=== PATIENT | female | born 1940 | race Caucasian/White ===

== ENCOUNTER 2017-05-28 06:44 | Day surgery (SDC) | payer MEDICARE ==
[~2017-05-28] VITALS: Ht 160 cm; Wt 74.3 kg
[~2017-05-28 06:44] MED LIST: AMLO5TAB2 PO; CARV12.52 PO; DENO60P SQ; DIPH1TAB36 PO; FLUT1SPR20; GABA300C5 PO; GEMF600T PO; HYDR-3533 PO; HYDR25TA5 PO; LISI-515 PO; LOTR15T TOPICAL; PANT40TA3 PO; POTA-163 PO; PRAV40TA2 PO
[2017-05-28] MEDS ORDERED: IOHEXOL 350 MG/ML 50 ML BTL (for Cath Lab) OTHER ONE (06:45)
[2017-05-28] MEDS ORDERED: SODIUM CHLOR 0.9% 1000 ML INJ 1,000 ML IV SCH ×2 (07:02→10:28)
[2017-05-28] MEDS ORDERED: diphenhydrAMINE HCL 50 MG/ML VIAL IV PUSH SCH (07:15)
[2017-05-28] MEDS ORDERED: MIDAZOLAM HCL 2 MG/2 ML VIAL IV PUSH SCH (07:15)
[2017-05-28 07:34] VITALS: BP 131/63; PULSE 52; RESP 18; TEMP 97.8; O2SAT 96
[2017-05-28] MEDS ORDERED: EZET10 PO (07:41)
[2017-05-28] MEDS ORDERED: ATOR20TA15 PO (07:41)
[2017-05-28] MEDS ORDERED: CALC1TAB87 PO (07:41)
[2017-05-28] MEDS ORDERED: NITR0.4S SL (07:41)
[2017-05-28] MEDS ORDERED: HEPARIN-NS/PF INJ 1,000 ML ONE (08:40)
[2017-05-28] MEDS ORDERED: MIDAZOLAM HCL 2 MG/2 ML VIAL ONE (08:41)
[2017-05-28] MEDS ORDERED: LIDOCAINE HCL 1% PF 30 ML VIAL ONE (09:17)
--- NOTE | 2017-05-28 10:27 | CATHPROC ---
[employer] HIS Report Study Information Study Number Admission Scheduled Start Study Start [id number] May 28 2017 6:44AM 05/28/2017 May 28 2017 8:30AM [place] Service Cardiac Catheterization Admit Source Facility Department Other [facility] - Home Care Attendant Physician and Clinical Staff Initial MD Sevilla, Jorge [employer] Science Teacher Emelia Scott,ECHO Other cathlab, cathlab Recorder Yamilka Chan,SHELL MACHINE OPERATOR TECH2 Scrub Jorge Sorenson,RT(R) Procedures Performed Procedure Location (Site) Vessel Name Coronary Angiograms LCA Left Coronary Coronary Angiograms RCA Right Coronary Equipment Time Immigration Law Specialist Description Size Mfg Part Number Used/Scraped [id number] 08:40 WU PRIDE SWAN TAINA CATHETER FR 7 Used *[id number] TRANSDUCER, TRUWAVE [id number] 08:40 WU PRIDE * Used W/STOCKCOCK *[id number] TRANSDUCER, TRUWAVE [id number] 08:40 WU PRIDE * Used W/STOCKCOCK *[id number] 538-476 *[id number] [id number] *[id number] [id number] *[id number] 08:40 [employer] PACK, CCL CUSTOM * Used *[id number] 08:40 [place] PACER PEN, SKIN DUAL W/ RULER * Used *[id number] 09:19 [employer] MEDICAL SHEATH, FR4.5 PRELUDE 11CM FR 4.5 Used [id number] 08:40 [employer] MEDICAL WIRE, 3MMJ .035 180CM 180CM Used *[id number] 08:40 NAMIC MANIFOLD, 2 PORT * Used *[id number] 08:40 NAMIC MANIFOLD, 4 PORT * Used *[id number] 08:40 [employer] OMNIPAQUE, 350 MG, 150ML 150ML [id number] Used [id number] 08:40 [employer] MEDICAL BLANKET,WARM AIR CCL * Used *[id number] 08:40 [employer] MEDICAL SHEATH, FR7 TERUMO (10CM) FR 7 Used *[id number] History: Allergies Allergy Reaction magnesium Rash magnesium oxide Rash magnesium sulfate Rash magnesium hydroxide Rash History: Risk Factors Family History of Hypertension Dyslipidemia Previous CT Previous Heart Failure Premature CAD Yes Yes No No No Prior Valve Prior PCI Prior CABG Surgery No No No Cerebrovascular Peripheral Artery Chronic Lung On Dialysis Diabetes Diabetes Therapy Disease Disease Disease No No No No Yes Oral History: Stress Tests Stress or Imaging Studies Performed No History: Other Current Smoker Quit Packs a Day Years Used Pack Years No 45 Years Ago 1 30 30 Labs Hgb (g/dl) Hct (%) WBC (l/cumm) Platelets (thousands) 11.60-17.00 35.00-51.00 4.00-11.00 150.00-450.00 11.3 34.2 12.9 163 Glucose (mg/dl) BUN (mg/dl) Creatinine (mg/dl) BUN:Creatinine (1:x) 74.00-106.00 7.00-18.00 0.50-1.30 10.00-20.00 149 7 0.5 14 Na (meq/l) K (meq/l) 136.00-145.00 3.50-5.10 143 3.8 Medication Medication Total Dose (Bolus/Oral) Medication Total Dosage/Unit 1% XYLOCAINE 30 mL FENTANYL 75 mcg OXYGEN 2 l/min VERSED 2 mg Medications (Bolus/Oral) Medication Time Given Dosage/Unit Administered By Reason VERSED 05/28/2017 9:01:28 AM 2 mg Eemlia Scott 2 mg VERSED given in lab by Emelia Scott RN in Left Wrist via Peripheral IV. Ordered by Jorge Plasencia. FENTANYL 05/28/2017 9:02:37 AM 25 mcg Emelia Scott 25 mcg FENTANYL given in lab by Emelia Scott RN in Left Wrist via Peripheral IV. Ordered by Jorge Ndiaye. 1% XYLOCAINE 05/28/2017 9:05:09 AM 20 mL Jorge Sevilla 20 mL 1% XYLOCAINE given in lab by Jorge Sevilla in Right Groin via Subcutaneous. Ordered by Jorge Ndiaye. FENTANYL 05/28/2017 9:19:28 AM 25 mcg Emelia Scott 25 mcg FENTANYL given in lab by Emelia Scott RN in Left Wrist via Peripheral IV. Ordered by Jorge Ndiaye. 1% XYLOCAINE 05/28/2017 9:29:54 AM 10 mL Jorge Sevilla 10 mL 1% XYLOCAINE given in lab by Jorge Sevilla in Left Groin via Subcutaneous. Ordered by Jorge Silva. FENTANYL 05/28/2017 9:46:00 AM 25 mcg Emelia Scott 25 mcg FENTANYL given in lab by Emelia Scott, RN in Left Wrist via Peripheral IV. Ordered by Jorge Ndiaye. OXYGEN 05/28/2017 9:53:06 AM 2 l/min Emelia Scott 2 l/min OXYGEN given in lab by Emelia Scott, ECHO via Nasal. Ordered by Jorge Sevilla. Medication (Drip) Medication Time Given Dosage/Unit Concentration/Unit Diluent (ml) Solution IV Solutions 05/28/2017 8:40:50 AM 0 mL (IV) 500 NaCl .9 IV Solutions given in lab by cathlab cathlab in Left Wrist via Peripheral IV. Pump/Drip Flow = 100 m l/hr using NaCl .9. Ordered by Jorge Sevilla. Initial Case Assessment Cardiovascular HR NIBP 59 157/69 Edema Present Skin color Skin None Normal Warm Dry Circulatory - Right Pulses Dorsalis Pedis Femoral 1 2 Scale (0,1,2,3,4,d) Circulatory - Left Pulses Dorsalis Pedis Femoral 1 2 Scale (0,1,2,3,4,d) Neurological State Oriented to time-place- Alert Moves all extremities person Respiration - General Respiration Rate SpO2 (%) (B/min) 14 96 Final Case Assessment Cardiovascular HR NIBP 66 148/63 Edema Present Skin color Skin None Normal Warm Dry Circulatory - Right Pulses Dorsalis Pedis Femoral 1 2 Scale (0,1,2,3,4,d) Circulatory - Left Pulses Dorsalis Pedis Femoral 1 2 Scale (0,1,2,3,4,d) Neurological State Oriented to time-place- Alert Moves all extremities person Respiration - General Respiration Rate SpO2 (%) O2 (lpm) (B/min) 14 93 2 Chronological Log Time Study Chronological Log 8:30:15 Patient arrived via Bed. 8:30:20 Patient Name, D.O.B, / Armband Verified By R.N. 8:30:21 Consent signed by the physician and the patient and verified by the Home Care Attendant staff. 8:30:22 Pre-op and post- op instructions given; patient acknowledges understanding of instructions. 8:30:24 Patient has been NPO for More than 6Hrs. 8:30:25 NO Skin Breakdown- 8:30:26 Patient Warmer Placed on the Table. Vitals capture started with the following parameters, Patient=Adult, Interval=5 min, Initial Pr aaxozk=086 mmHg, 8:38:55 Deflation Rate=5 mmHg, Cuff placed on Right Arm 8:39:11 Reference ECG taken 8:39:39 HR=59 bpm, GQTE=917/69 mmhg, SpO2=96.0 %, Resp=14 B/min, Pain=0, Alexander=10, Armendariz=2 8:40:48 Estrella Prominences Protected 8:40:48 A # 20 IV was noted in the Wrist (left). Grade = 0 IV Solutions given in lab by cathlab, cathlab in Left Wrist via Peripheral IV. Pump/Drip Flow = 100 ml/hr using NaCl .9. 8:40:50 Ordered by Jorge Sevilla. 8:40:53 History and physical on the chart or being dictated. Assessment: Initial Case, HR=59 BPM, HDKD=419/69 mmhg, Edema=None, Color=Normal, Skin = Warm, D ry Right Pulses: Ramon Ped=1, Femoral=2 8:40:54 Left Pulses: Ramon Ped=1, Femoral=2 Neurological: State=Alert, Ox3, HADDAD Respiration: Resp=14 B/min, SpO2=96 % 8:44:40 HR=58 bpm, JJSH=585/62 mmhg, SpO2=94.0 %, Resp=15 B/min, Pain=0, Alexander=10, Armendariz=2 8:49:33 HR=59 bpm, FIWE=219/85 mmhg, SpO2=94.0 %, Resp=11 B/min, Pain=0, Alexander=10, Armendariz=2 8:53:46 Bilateral groins prepped with 2% chlorhexidine, and draped after a 3 minute waiting time. 8:55:09 HR=59 bpm, UJWE=964/68 mmhg, SpO2=93.0 %, Resp=11 B/min, Pain=0, Alexander=10, Armendariz=2 8:56:24 Pressure channel 1 zeroed. 8:56:43 Pressure channel 2 zeroed. 9:00:06 HR=65 bpm, GCSA=228/70 mmhg, SpO2=93.0 %, Resp=19 B/min, Pain=0, Alexander=10, Armendariz=2 Time Out. Correct patient, correct procedure, correct physician, power injector not loaded with contrast with surgical 9:00:16 team present. Time Out Concurred by MD and individual staff in procedure. Time Out #2 - Consents verified, patient in correct position, all results are labled and display ed, safety precautions 9:00:42 taken. Time Out concurred by MD, individual staff in procedure. 9:01:28 2 mg VERSED given in lab by Emelia Scott RN in Left Wrist via Peripheral IV. Ordered by Jorge Sevilla. 9:01:54 Case Start 9:02:37 25 mcg FENTANYL given in lab by Emelia Scott RN in Left Wrist via Peripheral IV. Ordered by Jorge Sevilla. 9:04:36 HR=66 bpm, OFFQ=604/65 mmhg, SpO2=89 %, Resp=12 B/min, Pain=0, Alexander=10, Armendariz=2 9:05:09 20 mL 1% XYLOCAINE given in lab by Jorge Sevilla in Right Groin via Subcutaneous. Ordered by Mark. Roel 9:10:12 HR=64 bpm, NTDS=233/65 mmhg, SpO2=91 %, Resp=15 B/min, Pain=0, Alexander=10, Armendariz=2 9:14:38 HR=66 bpm, UDLO=960/68 mmhg, SpO2=93.0 %, Resp=17 B/min, Pain=0, Alexander=10, Ramendariz=2 9:18:22 Access site was Right Femoral Artery. 9:18:29 A SHEATH, FR4.5 PRELUDE 11CM FR 4.5 was advanced into the Fem Art (right) using the Modified Seldinger technique. 9:19:28 25 mcg FENTANYL given in lab by Emelia Scott RN in Left Wrist via Peripheral IV. Ordered by Jorge Sevilla. 9:19:37 HR=66 bpm, UMOR=380/78 mmhg, SpO2=92.0 %, Resp=16 B/min, Pain=0, Alexander=10, Armendariz=2 9:23:14 DR. VALLE IS USING ULTRASOUND TO FIND RFV 9:24:39 HR=65 bpm, CEPK=332/74 mmhg, SpO2=85.0 %, Resp=15 B/min, Pain=0, Alexander=10, Armendariz=2 9:29:54 10 mL 1% XYLOCAINE given in lab by Jorge Sevilla in Left Groin via Subcutaneous. Ordered by Jorge Sevilla. 9:30:14 HR=65 bpm, ZKUY=676/67 mmhg, SpO2=92.0 %, Resp=14 B/min, Pain=0, Alexander=10, Armendariz=2 9:32:27 Access site was Left Femoral Vein. 9:32:36 A SHEATH, FR7 TERUMO (10CM) FR 7 was advanced into the Fem Vein (left) using the Modified Se stevens technique. 9:34:07 A SWAN TAINA CATHETER FR 7 was inserted via Fem Vein (left) 9:34:43 HR=68 bpm, LHKD=684/65 mmhg, SpO2=90.0 %, Resp=12 B/min, Pain=0, Alexander=10, Armendariz=2 9:36:23 Pressure channel 2 zeroed. 9:36:37 Pressure channel 2 zeroed. 9:38:23 Pressure channel 2 zeroed. Recorded Pressure: RA, HR=65, Condition=Condition 1 9:39:03 (Right Atrium) RA 9:39:09 Pressure channel 1 zeroed. 9:39:42 HR=63 bpm, GCNY=743/66 mmhg, SpO2=92.0 %, Resp=14 B/min, Pain=0, Alexander=10, Armendariz=2 Recorded Pressure: RV, HR=63, Condition=Condition 1 9:40:05 (Right Ventricle) RV 39//10 Recorded Pressure: PCW, HR=63, Condition=Condition 1 9:42:29 (Pulmonary Capillary Wedge) PCW /15 Recorded Pressure: MPA, HR=63, Condition=Condition 1 9:43:11 (Main Pulmonary Artery) MPA /28 Thermo CO: CO=5.3 l/m, HR=66 bpm, Condition=Condition 1. Used in calculation. 9:44:11 Equipment: Description and Size=SWAN TAINA CATHETER FR 7, Type=Bath Probe, CC=0.579 Injectant: Temp=19.0 - 22.0 Celsius, Volume=10.0 ml Thermo CO: CO=4.7 l/m, HR=64 bpm, Condition=Condition 1. Used in calculation. 9:44:46 Equipment: Description and Size=SWAN TAINA CATHETER FR 7, Type=Bath Probe, CC=0.579 Injectant: Temp=19.0 - 22.0 Celsius, Volume=10.0 ml 9:45:07 HR=64 bpm, QDQH=025/70 mmhg, SpO2=92.0 %, Resp=13 B/min, Pain=0, Alexander=10, Armendariz=2 Thermo CO: CO=5.1 l/m, HR=67 bpm, Condition=Condition 1. Used in calculation. 9:45:17 Equipment: Description and Size=SWAN TAINA CATHETER FR 7, Type=Bath Probe, CC=0.579 Injectant: Temp=19.0 - 22.0 Celsius, Volume=10.0 ml 9:46:00 25 mcg FENTANYL given in lab by Emelia Scott RN in Left Wrist via Peripheral IV. Ordered by Jorge Sevilla. 9:46:26 Saturation: Site=FA (Femoral Artery) , O2=93.8 %, Hgb=11.3 gm/dl, Condition=Condition 1. Use d in calculation. 9:47:59 Saturation: Site=PA (Pulmonary Artery) , O2=11.3 %, Hgb=72.2 gm/dl, Condition=Condition 1. U sed in calculation. 9:48:39 Saturation: Site=RV (Right Ventricle) , O2=70.7 %, Hgb=11.3 gm/dl, Condition=Condition 1. Us ed in calculation. 9:49:25 Saturation: Site=RAhi (High Right Atrium) , O2=70.4 %, Hgb=11.3 gm/dl, Condition=Condition 1 . Used in calculation. 9:50:17 HR=60 bpm, LPFL=833/66 mmhg, SpO2=88.0 %, Resp=11 B/min, Pain=0, Alexander=10, Armendariz=2 9:50:46 Saturation: Site=Goran (Mid Right Atrium) , O2=69.5 %, Hgb=11.3 gm/dl, Condition=Condition 1. Used in calculation. 9:51:30 Saturation: Site=RAlo (Low Right Atrium) , O2=67.9 %, Hgb=11.3 gm/dl, Condition=Condition 1. Used in calculation. 9:53:00 [place] Taina Catheter Removed 9:53:06 2 l/min OXYGEN given in lab by Emelia Scott RN via Nasal. Ordered by Jorge Sevilla. A JL 4.0 INFINITI CATHETER FR 4 was advanced over a wire. OMNIPAQUE, 350 MG, 150ML 150ML was us ed for 9:53:21 injections. 9:54:43 HR=60 bpm, KHAV=087/59 mmhg, SpO2=90.0 %, Resp=14 B/min, Pain=0, Alexander=10, Armendariz=2 Recorded Pressure: Ao, HR=61, Condition=Condition 1 9:55:45 (Aorta) Ao 129/57/86 9:56:11 The LCA was injected and visualized at various angles. OMNIPAQUE, 350 MG, 150ML 150ML used. 9:59:40 HR=66 bpm, TLWH=928/66 mmhg, SpO2=93.0 %, Resp=14 B/min, Pain=0, Alexander=10, Armendariz=2 9:59:45 Catheter was removed A 3DRC INFINITI CATHETER FR 4 was advanced over a wire. OMNIPAQUE, 350 MG, 150ML 150ML was used for 9:59:47 injections. 10:03:18 The RCA was injected and visualized at various angles. OMNIPAQUE, 350 MG, 150ML 150ML used . 10:04:41 HR=64 bpm, LZKE=773/63 mmhg, SpO2=91.0 %, Resp=14 B/min, Pain=0, Alexander=10, Armendariz=2 10:05:55 Catheter was removed 10:06:08 An injection in the Fem Art (right) was made through the SHEATH, FR4.5 PRELUDE 11CM FR 4.5. 10:08:24 Catheter(s) removed without difficulty 10:08:33 Sheath(s) left in place, will be removed in Holding Area 10:08:42 Case End 10:10:15 HR=66 bpm, BPLW=690/65 mmhg, SpO2=93.0 %, Resp=14 B/min, Pain=0, Alexander=10, Armendariz=2 10:12:16 Sterile dressing applied to site 10:12:17 No case complications noted. 10:14:45 HR=66 bpm, WROP=620/63 mmhg, SpO2=93.0 %, Resp=14 B/min, Pain=0, Alexander=10, Armendariz=2 10:14:55 Vitals capture stopped. Assessment: Final Case, HR=66 BPM, TUXX=390/63 mmhg, Edema=None, Color=Normal, Skin = Warm, Dry Right Pulses: Ramon Ped=1, Femoral=2 10:15:26 Left Pulses: Rmaon Ped=1, Femoral=2 Neurological: State=Alert, Ox3, HADDAD Respiration: Resp=14 B/min, SpO2=93 %, O2=2 lpm 10:16:08 No case complications noted. 10:16:09 Cine recording checked. 10:16:10 Bedside Report will be given. 10:16:14 Contrast Scanned 10:16:17 A Left and Right Heart Cath was performed. End Study - Contrast Media Used In Study Contrast Total Opened (mL) Total Used (mL) Total Wasted (mL) Omnipaque 50 50 0 End Study - Maximum Contrast Load Max Contrast Load (mL) 743.2 End Study - Radiation Exposure Fluoro Time (minutes) 12.5 End Study - Patient Disposition Complications Transferred To Telemetry Bed
[2017-05-28] MEDS ORDERED: SODIUM CHLORIDE 0.9% FLUSH 10 ML FLUSH IV FLUSH PRN (10:30)
[2017-05-28] MEDS ORDERED: LORazepam 2 MG/ML VIAL IV PUSH PRN (10:30)
[2017-05-28] MEDS ORDERED: LIDOCAINE HCL 1% 50 ML VIAL INFIL PRN (10:30)
[2017-05-28] MEDS ORDERED: BACITRACIN OINT 0.9 GM PKT TOP ONE (10:30)
[2017-05-28] MEDS ORDERED: ATROPINE SULFATE 1 MG/ML VIAL IV PUSH PRN (10:30)
[2017-05-28] MEDS ORDERED: METOCLOPRAMIDE HCL 10 MG/2 ML VIAL IV PUSH PRN (10:30)
[2017-05-28] MEDS ORDERED: MISC INFORMATION XX ONE (10:30)
[2017-05-28] MEDS ORDERED: SODIUM CHLOR 0.9% 250 ML INJ 250 ML IV PRN (10:30)
[2017-05-28] MEDS ORDERED: SODIUM CHLORIDE 0.9% FLUSH 10 ML FLUSH IV FLUSH SCH (10:30)
--- NOTE | 2017-05-29 11:39 | MA ---
cc: VIVEK MICHEL M.D.RAFAELA DO DATE 05/28/2017 PROCEDURE PERFORMED Right heart catheterization. Left heart catheterization. Coronary arteriography. Right femoral angiography. PROCEDURE TECHNIQUE The patient was brought to the cardiac catheterization laboratory and the area of the right and left groins were prepped and draped in the usual sterile manner. Following 50 mL of 1% Xylocaine for local anesthesia in the right groin, a 4-Prydeinig short introducer sheath was placed in the right femoral artery via the modified Seldinger technique. A 7-Prydeinig short introducer sheath was placed in the left femoral vein because of access in the right femoral vein. Through the venous introducer sheath, a 7-Prydeinig Cummaquid-Henrry thermodilution catheter was past to the right heart and pressures measured in the right atrium, right ventricle, pulmonary artery and pulmonary capillary wedge positions. Triplicate thermodilution cardiac outputs were performed and following oxygen saturations drawn from the pulmonary artery, right ventricle, high mid and low right atrium and arterial system, the catheter was removed. The left heart study was performed with the use of a 4-Prydeinig JL-4 and 3DRC catheter. Multiple projections of the left and right coronary arteries were taken and a left ventricular was not performed due to severe aortic stenosis based upon recent echocardiography. HEMODYNAMIC RESULTS Right heart pressures: Right atrium A-wave equals 12, V-wave equals 11, mean equals 8 mmHg. Right ventricle 39/10 mmHg. Pulmonary artery 39/80 mmHg with a mean pulmonary pressure 28 mmHg. Pulmonary capillary wedge pressure A-wave equals 19, V-wave equals 26, mean equals 15 mmHg. The aortic valve was not crossed. The cardiac output by thermodilution 5.0 liters per minute, index 2.8 liters per minute/meter squared. The cardiac output by Yuri was inaccurate. Oxygen saturations did not show any evidence of intracardiac shunting or step up. For complete hemodynamic details, please see accompanying paperwork. ANGIOGRAPHIC FINDINGS LEFT VENTRICLE Not performed. LEFT CORONARY ARTERY The left coronary arises normally from the left coronary sinus. LEFT MAIN ARTERY The left main artery is large in caliber and has some mild calcifications. There is some eccentric ostial narrowing of approximately 40-45%. There is some 20-30% distal tapering. LEFT ANTERIOR DESCENDING ARTERY A vzfcogus-vm-akqyi caliber vessel. Gives rise to one major diagonal branch and multiple septal perforating branches. The LAD course is around the apex. There are mild luminal irregularities throughout with areas up to 10-15% narrowing. Diagonal branch is moderate in caliber with a 10-15% proximal stenosis. CIRCUMFLEX Nondominant. Large-caliber vessel. 15-20% proximal stenosis, some mild ectasia throughout the mid segment gives rise to a small lateral branch and a large posterolateral branch. The posterolateral branch has only mild luminal irregularities. RIGHT CORONARY ARTERY Dominant. The right coronary is large in caliber and gives rise to a right ventricular marginal branch, posterior descending branch and two posterior ventricular branches. The right coronary artery has mild luminal irregularities in the mid segment. The RV branch is small in caliber and normal. The posterior descending branch is moderate in caliber with mild irregularities. The posterior ventricular branches are moderate in caliber. The first posterior ventricular branch is small in caliber. The second posterior ventricular most distal branch is large in caliber and normal. DIAGNOSIS 1. Normal right heart pressures. 2. Mild coronary atherosclerosis with 40-45% ostial left main stenosis. 3. Normal left ventricular function based upon recent noninvasive studies. 4. Severe calcific aortic stenosis. COMMENT/RECOMMENDATIONS Angiographically, this patient does not have any hemodynamically significant epicardial coronary artery disease. She will be discharged home later today for further followup with surgery and interventional cardiology for consideration of TAVR. MD CHUCK Osborn/SHANTEL /10:18 AM /11:17 AM
== END 2017-05-28 17:32 | disposition home or self-care (01) ==
LOC: HDIC 06:44 → HDOC 06:44
PROVIDERS: ATTEND Internal Medicine Interventional Cardiology
DX: I70.0 Atherosclerosis of aorta (principal); I25.10 Atherosclerotic heart disease of native coronary artery without angina pectoris; I10 Essential (primary) hypertension
CPT/HCPCS: 82810; 93456; 99152; 99153; C1769; C1893; J1644; J2250; J3010; Q9967

== ENCOUNTER → 2017-06-17 | Outpatient (CLI) | payer MEDICARE ==
[~2017-06-17] MED LIST changes: +ATOR20TA15 PO; +CALC1TAB87 PO; -DIPH1TAB36 PO; +EZET10 PO; -FLUT1SPR20; -GEMF600T PO; -HYDR-3533 PO; -HYDR25TA5 PO; +NITR0.4S SL; -PANT40TA3 PO; -PRAV40TA2 PO
--- NOTE | 2017-06-22 14:50 | RSPPFT ---
DATE OF PROCEDURE: 06/17/17 COMMENTS: Spirometry with FVC of 2.4, FEV1 of 1.6, FEV1/FVC ratio at 68%. A non-significant response to acutely inhaled bronchodilator noted. Slow vital capacity is 72%. TLC is 75%. Diffusion capacity is 63% of predicted. Room air arterial blood gases show pH of 7.48, PCO2 of 37, PO2 of 112. IMPRESSION: 1. Moderately severe airways obstruction. 2. Associated restrictive component. 3. Moderate reduction in diffusion capacity. 4. Non-significant response to inhaled bronchodilator. 5. Adequate oxygenation and alveolar ventilation.
== END ==
LOC: HRSP 12:08
PROVIDERS: ATTEND Internal Medicine Interventional Cardiology
DX: R06.02 Shortness of breath (principal)
CPT/HCPCS: 36600; 82805; 94060; 94726; 94729